=== PATIENT | female | born 2000 | race Caucasian/White ===

== ENCOUNTER 2024-09-25 02:37 | Emergency (ER) | payer MEDICAID, SELFPAY ==
[2024-09-25 02:44] VITALS: BP 139/101; PULSE 129; TEMP 36.8; O2SAT 99; BMI 21.0
--- NOTE | 2024-09-25 02:58 | ED.GENADUL1 ---
HPI HPI - General Adult General Chief complaint: Upper Respiratory Infection Stated complaint: DIFICULTY BREATHING Time Seen by Provider: 09/25/24 02:41 Source: patient Mode of arrival: walk-in Limitations: no limitations History of Present Illness HPI narrative: 23-year-old female presents for cough and congestion and hoarse voice. She has been sick for about 6 days. She states she has been coughing up a small amount of phlegm, sometimes white and sometimes clear. No ear pain or drainage. She was worried about having influenza or COVID. Related Data Home Medications ?Medication ?Instructions ?Recorded ?Confirmed albuterol sulfate 90 mcg/actuation inhalation 09/25/24 aerosol inhaler epinephrine 0.3 mg/0.3 mL 0.3 mg IM Q10M PRN anaphylaxis 09/25/24 09/25/24 injection, auto-injector (EpiPen) Allergies Allergy/AdvReac Type Severity Reaction Status Date / Time Alpha-Gal Allergy Severe Anaphylaxis Verified 09/25/24 02:51 (Deeydwtzy-Crncp-4,3-Gala onions Allergy Severe Anaphylaxis Uncoded 09/25/24 02:51 Opioid HPI Opioid Management Most Recent Opioid Data: No Data to Display Review of Systems ROS Narrative A ten point review of systems is negative except as noted above. PFSH PFSH Social History Little interest or pleasure in doing things: not at all Feeling down, depressed, or hopeless: not at all Exam Narrative Exam Narrative: Nurses note and vital signs reviewed and patient is not hypoxic. General: The patient appears well and in no apparent distress. Patient is resting comfortably on cart. Skin: Warm, dry, no pallor noted. There is no rash noted. Head: Normocephalic, atraumatic Eye: Normal conjunctiva, no drainage Ears, Nose, Mouth, and Throat: oral mucosa is moist. Nares patent. No pharyngeal erythema or exudate. Uvula midline. No swelling to the floor of her mouth. She is handling her oral secretions well. Cardiovascular: Regular Rate and Rhythm Respiratory: Patient is in no distress, no accessory muscle use, lungs are clear to auscultation, no wheezing, rales or rhonchi Back: non-tender GI: Soft and nontender Musculoskeletal: The patient has no evidence of calf tenderness, no pitting edema, symmetrical pulses noted bilaterally Neurological: A&O, voice is hoarse Psychiatric: Cooperative Constitutional Vital Signs, click to edit/add: Last Vital Signs Temp 98.2 F 09/25/24 02:44 Pulse 129 H 09/25/24 02:44 Resp 17 09/25/24 02:44 BP 117/78 09/25/24 03:33 Pulse Ox 99 09/25/24 03:08 O2 Del Method Room Air 09/25/24 03:08 Course Vital Signs Vital signs: Vital Signs Temperature 98.2 F 09/25/24 02:44 Pulse Rate 129 H 09/25/24 02:44 Respiratory Rate 17 09/25/24 02:44 Blood Pressure 139/101 H 09/25/24 02:44 Pulse Oximetry 99 09/25/24 02:44 Oxygen Delivery Method Room Air 09/25/24 02:44 Temperature 98.2 F 09/25/24 02:44 Pulse Rate 129 H 09/25/24 02:44 Respiratory Rate 17 09/25/24 02:44 Blood Pressure 117/78 09/25/24 03:33 Pulse Oximetry 99 09/25/24 03:08 Oxygen Delivery Method Room Air 09/25/24 03:08 Medical Decision Making MDM Narrative Medical decision making narrative: COVID, influenza, strep test, and chest x-ray are all negative. My clinical impression is that she has laryngitis. Treatment diagnosis and follow-up were discussed with the patient. Differential Diagnosis Differential Diagnosis: Laryngitis, strep throat, COVID, influenza, pneumonia Lab Data Lab results reviewed: Yes I reviewed the patient's lab results Labs: Lab Results 09/25/24 Range/Units 03:00 Influenza Type A Ag Negative Influenza Type B Ag Negative SARS-CoV-2 Ag (CV2AG) Negative (NEGATIVE) Streptococcus Screen Negative Imaging Data Chest x-ray: Radiologist's impression: No lobar consolidation Discharge Plan Discharge Chief Complaint: Upper Respiratory Infection Clinical Impression: Laryngitis Patient Disposition: Home, Self-Care Time of Disposition Decision: 03:37 Condition: Good Mode of Transportation: Private Vehicle Prescriptions / Home Meds: No Action albuterol sulfate 90 mcg/actuation HFA aerosol inhaler INHALATION epinephrine [EpiPen] 0.3 mg/0.3 mL auto-injector 0.3 mg IM Q10M PRN (Reason: anaphylaxis) Rx Instructions: for 2 doses Print Language: Grenadian Instructions: Laryngitis (ED) Referrals: RAYNE SESAY [Primary Care Provider] - 1 week
[2024-09-25 03:08] VITALS: O2SAT 99
[2024-09-25 03:15] LABS: Internal Control Within Normal Limits; Strep A Antigen Screen Negative
[2024-09-25 03:20] LABS: Influenza Virus A Antigen Negative; Influenza Virus B Antigen Negative; Internal Control Within Normal Limits; SARS-CoV-2 Ag NEGATIVE (NEGATIVE)
[2024-09-25 03:33] VITALS: BP 117/78
== END 2024-09-25 03:44 | disposition home or self-care (01) ==
PROVIDERS: Emergency Provider Emergency Medicine; PCP Physician Assistant
DX: J04.0 Acute laryngitis (principal)
CPT/HCPCS: 71045; 87070; 87804; 87811; 87880; 99284